=== PATIENT | male | born 1965 | race Two or more races ===

== ENCOUNTER 2023-01-31 19:21 | Emergency (ER) | payer BC ==
[~2023-01-31] VITALS: Ht 182.9 cm; Wt 117.9 kg
[2023-01-31] MEDS ORDERED: CELEBREX200MG PO (20:07)
[2023-01-31] MEDS ORDERED: KETO10TA2 PO (22:56)
[2023-01-31] MEDS ORDERED: TAMS0.4C PO (22:56)
[2023-01-31] MEDS ORDERED: CIPRO500 MG PO (22:56)
== END 2023-01-31 23:24 | disposition home or self-care (01) ==
LOC: ER 19:21
DX: R10.9 Unspecified abdominal pain (principal); N20.9 Urinary calculus, unspecified; Z87.442 Personal history of urinary calculi; N20.0 Calculus of kidney